=== PATIENT | male | born 1995 | race Two or more races ===

== ENCOUNTER 2020-12-20 15:47 | Emergency (ER) | payer SELFPAY ==
[2020-12-20 17:41] VITALS: BP 122/79; PULSE 97; RESP 16; TEMP 37.2; O2SAT 100; BMI 24.6
--- NOTE | 2020-12-20 17:55 | ED_ITS ---
HPI - URI/Sore Throat General Stated Complaint: Sore throat <MELISSA Erazo - Last Filed: 12/20/20 18:51> Time Seen by Provider: 12/20/20 17:15 <MELISSA Erazo Last Filed: 12/20/20 18:51> Source: patient <MELISSA Erazo Last Filed: 12/20/20 18:51> Mode of arrival: ambulatory <MELISSA Erazo Last Filed: 12/20/20 18:51> Limitations: no limitations <MELISSA Erazo - Last Filed: 12/20/20 18:51> History of Present Illness HPI Narrative: 25-year-old male with no significant past medical history presenting to the ED with complaints of a sore throat x2 days worse today. Reports he was seen at [facility] and had a rapid COVID which was negative. Denies any other symptoms complaints or concerns at this time. Denies recent travel or sick contacts that he is aware of. <MELISSA Erazo - Last Filed: 12/20/20 18:51> MD elicited complaint: sore throat <MELISSA Erazo - Last Filed: 12/20/20 18:51> Onset (ago): day(s) (Two days) <MELISSA Erazo - Last Filed: 12/20/20 18:51> Consistency: constant <MELISSA Erazo - Last Filed: 12/20/20 18:51> Severity: moderate <MELISSA Erazo Last Filed: 12/20/20 18:51> Able to tolerate fluids by mouth: Yes <MELISSA Erazo Last Filed: 12/20/20 18:51> Exacerbating factors: swallowing <MELISSA Erazo Last Filed: 12/20/20 18:51> Relieving factors: nothing <MELISSA Erazo Last Filed: 12/20/20 18:51> Associated symptoms: denies other symptoms <MELISSA Erazo - Last Filed: 12/20/20 18:51> Treatments prior to arrival: other (Patient is taking [id number] medication no symptomatic relief) <MELISSA Erazo Last Filed: 12/20/20 18:51> Related Data Home Medications: Previous Rx's Medication Instructions Recorded acetaminophen-codeine 1 tab PO Q8H PRN #10 tab 12/20/20 amoxicillin-pot clavulanate 1 tab PO BID 10 Days #20 tab 12/20/20 [Augmentin] dexamethasone [Decadron] 6 mg PO DAILY 5 Days #5 tab 12/20/20 ibuprofen 800 mg PO Q8H PRN #14 tab 12/20/20 <MELISSA Erazo - Last Filed: 12/20/20 18:51> Allergies/Adverse Reactions: Allergies Allergy/AdvReac Type Severity Reaction Status Date / Time No Known Allergies Allergy Verified 12/20/20 17:44 <MELISSA Erazo - Last Filed: 12/20/20 18:51> Review of Systems Review of Systems: Constitutional : No Fever, No Chills, No fatigue, No Malaise ENT/Mouth : + sore throat, No runny nose, no trouble swallowing, no change in voice Cardiovascular : No Chest Pain, No SOB Respiratory : No Cough, No Sputum, No Wheezing, No Dyspnea Musculoskeletal : No Myalgia Skin : No rash Neuro : No Headache <MELISSA Erazo - Last Filed: 12/20/20 18:51> Yes all other systems are reviewed and are negative <MELISSA Erazo - Last Filed: 12/20/20 18:51> FORMERLY [facility] Past Medical History Attestation statement: The following information was validated with the patient. <MELISSA Erazo - Last Filed: 12/20/20 18:51> Medical History: Medical History No known health problems <MELISSA Erazo - Last Filed: 12/20/20 18:51> Social History Social History: Social History Alcohol intake: never Smoked in Last 30 Days: No Use of substances other than those prescribed or required for medical reasons: No Any prior treatment program specific to substance use: No Advance Directives: No Advance Directives Information Provided: Yes <MELISSA Erazo Last Filed: 12/20/20 18:51> Physical Exam Vital Signs: Vital Signs: Last Vital Signs Temp 99.0 F 12/20/20 17:41 Pulse 97 12/20/20 17:41 Resp 16 12/20/20 17:41 BP 122/79 12/20/20 17:41 Pulse Ox 100 12/20/20 17:41 Body Mass Index 24.6 vital signs have been reviewed as normal and appeared to be correct. Blood pressure normal. Heart rate normal. Respiration rate normal. Temperature normal. Oxygen saturation normal. <MELISSA Erazo - Last Filed: 12/20/20 18:51> Vital Signs: Last Vital Signs Temp 99.0 F 12/20/20 17:41 Pulse 97 12/20/20 17:41 Resp 16 12/20/20 17:41 BP 122/79 12/20/20 17:41 Pulse Ox 100 12/20/20 17:41 Body Mass Index 24.6 <Oseas Santamaria MD - Last Filed: 01/01/21 10:29> Appearance: Alert. Oriented X3. No acute distress. Head: Normal external exam. Normocephalic. Atraumatic. Eyes: PERRLA. EOMI. Conjunctiva and sclera normal. Eyelids normal. ENT: Patient moderate exudate bilaterally with moderate erythema in posterior pharynx consistent with bacterial pharyngitis. Uvula midline. Moist mucous membranes. No trismus noted. No drooling noted. No muffled voice noted. Neck: Normal inspection. Neck supple. FROM. No adenopathy. Thyroid Normal. No meningeal signs. No neck mass noted. CVS: Normal heart rate and rhythm. Heart sound normal. No murmurs noted. Pulses normal throughout. Respiratory: No respiratory distress. Painless inspiration. Breath sounds normal. No wheezes/rales/rhonchi noted. Chest nontender. No accessory muscle usage noted or decreased air movement noted. Back: Full range of motion noted. Skin: Skin warm and dry. Normal skin color. Normal skin turgor. No rashes/lesions/lacerations noted. Extremities: Extremities exhibit normal range of motion. Extremities nontender. Neuro: Oriented X 3. No motor deficit. No sensory deficit. Reflexes normal. <MELISSA Erazo - Last Filed: 12/20/20 18:51> Course Course Course Narrative: 25-year-old male with no significant past medical history presenting to the ED with complaints of a sore throat x2 days worse today. Reports he was seen at [facility] and had a rapid COVID which was negative. - on exam patient is alert and oriented x3. Not in any acute distress. Vital signs are stable within normal limits. Posterior pharynx with moderate exudate on bilateral tonsils. Uvula is midline no shift noted. Not consistent with peritonsillar abscess or pharyngeal abscess. Patient has no drooling or trismus and a normal voice. Will obtain a rapid strep and a Monospot. Provide symptomatic treatment with 10 mg of Decadron, 975 mg of Motrin, viscous lidocaine and start the patient on 875 mg of Augmentin and instructions to return if any new or worsening symptoms and to follow up with primary care provider. Patient understands and agrees with this plan. <MELISSA Erazo - Last Filed: 12/20/20 18:51> I have reviewed the chart <Oseas Santamaria MD - Last Filed: 01/01/21 10:29> MDM - URI/Sore Throat Medical Records Attestation: I reviewed the patient's medical records. <MELISSA Erazo - Last Filed: 12/20/20 18:51> Lab Data Attestation: I reviewed the patient's lab results. <MELISSA Erazo - Last Filed: 12/20/20 18:51> Labs: Lab Results 12/20/20 12/20/20 Range/Units 17:51 18:13 COVID-19 (KAREN) Negative (Negative) COVID-19 Clin Com See Note Monoscreen Negative (Negative) <MELISSA Erazo - Last Filed: 12/20/20 18:51> Lab Results 12/20/20 12/20/20 Range/Units 17:51 18:13 COVID-19 (KAREN) Negative (Negative) COVID-19 Clin Com See Note Monoscreen Negative (Negative) <Oseas Santamaria MD - Last Filed: 01/01/21 10:29> Discharge Plan Discharge Clinical Impression: Pharyngitis <MELISSA Erazo - Last Filed: 12/20/20 18:51> Patient Disposition: Home, Self-Care <MELISSA Erazo - Last Filed: 12/20/20 18:51> Instructions: Pharyngitis (ED) <MELISSA Erazo - Last Filed: 12/20/20 18:51> Prescriptions: New amoxicillin-pot clavulanate [Augmentin] 875-125 mg tablet 1 tab PO BID 10 Days Qty: 20 RF: 0 acetaminophen-codeine 300-30 mg tablet 1 tab PO Q8H PRN (Reason: pain) Qty: 10 RF: 0 ibuprofen 800 mg tablet 800 mg PO Q8H PRN (Reason: pain) Qty: 14 RF: 0 dexamethasone [Decadron] 6 mg tablet 6 mg PO DAILY 5 Days Qty: 5 RF: 0 <MELISSA Erazo - Last Filed: 12/20/20 18:51> Referrals: Physician,Unknown [Primary Care Provider] - 2 days (your pcp) <MELISSA Erazo - Last Filed: 12/20/20 18:51> Stand Alone Forms: Work/School Release <MELISSA Erazo - Last Filed: 12/20/20 18:51> Interventions: ED Discharge Assessment Last Done: 12/20/20 19:29 <MELISSA Erazo - Last Filed: 12/20/20 18:51> Discharge Date/Time: 12/20/20 19:32 <MELISSA Erazo - Last Filed: 12/20/20 18:51> Print Language: Portuguese <MELISSA Erazo - Last Filed: 12/20/20 18:51>
[2020-12-20 18:11] LABS: COVID-19 Test Negative (Negative)
[2020-12-20 18:56] LABS: Monotest Negative (Negative)
[2020-12-20] MEDS: Acetaminophen 325 MG TABLET 975 MG PO (19:23)
[2020-12-20] MEDS: dexAMETHasone 2 MG TABLET 10 MG PO (19:23)
[2020-12-20] MEDS: Lidocaine HCl Viscous 2 % 15 ML SOLUTION MUCOUS MEM (19:24)
[2020-12-20] MEDS: Amoxicillin/Potassium Clav 875 MG TABLET PO (19:24)
== END 2020-12-20 19:32 | disposition home or self-care (01) ==
LOC: HO.ED 18:23
PROVIDERS: Physician Assistant Medical; Emergency Provider Emergency Medicine
DX: J02.9 Acute pharyngitis, unspecified (principal); Z20.822 Contact with and (suspected) exposure to COVID-19
CPT/HCPCS: 36415; 86308; 87071; 87635; 87880; 99283; 99284; J8540